=== PATIENT | female | born 1960 | race Caucasian/White ===

== ENCOUNTER → 2019-09-14 15:17 | Outpatient (CLI) | payer OTHER, SELFPAY ==
[2019-09-15 18:08] LABS: COVID19 Sendout Not Detected (Not Detect)
== END ==
PROVIDERS: Visit Provider Physician Assistant
DX: Z11.59 Encounter for screening for other viral diseases (principal)
CPT/HCPCS: 87635

== ENCOUNTER 2019-09-17 06:28 | Day surgery (SDC) | payer OTHER, SELFPAY ==
[2019-09-17] VITALS (8 sets, daily range): BP systolic 101–125; BP diastolic 44–69; PULSE 53–72; RESP 13–19; TEMP 36–36.4; O2SAT 95–99; BMI 30.5
--- NOTE | 2019-09-17 | PATH_ITS ---
[facility] Accession Number: [id number] . 01 Material submitted: . colon - CECAL LIPOMA . 02 Diagnosis: Cecum, Biopsy: Serrated lesion, favor sessile serrated adenoma. Submucosal mature adipose tissue consistent with lipoma. [facility] 09/21/2019 1558 Local . 02 Electronically signed: . Linh Carreon MD, Pathologist NPI- [id number] . 01 Gross description: . Received in formalin, labeled cecal lypoma, are two pieces of alonso, soft tissue measuring 0.8 x 0.6 x 0.4 cm to 0.3 x 0.2 x 0.2 cm. The larger piece of tissue is inked, trisected, and entirely submitted in cassette A1. The smaller fragment of tissue is entirely submitted in cassette A1 as well, for a number of four total pieces. ([id number]) /FRR 09/18/2019 0914 Local . 02 Pathologist provided ICD-10: D12.0 . 02 CPT . 775393 Performed at: 01 [facility] [address], [place], [place] [id number] MD Richie Tejada MD Phone: [phone] Performed at: 02 [facility] [address] [place], [place] [id number] MD Linh Carreon MD Phone: [phone]
--- NOTE | 2019-09-17 07:22 | PM.HP.1 ---
History of Present Illness History of Present Illness Date Patient Seen: 09/17/19 Time Patient Seen: 07:22 Chief complaint: [facility] [place]arrative: This is the 58-year-old woman with history of colonoscopy 11 years ago because of abdominal pains. She says that colonoscopy was normal. She says she has not had 1 since then. She believes her mother had some type of colon cancer but she is not sure what it was. She does not of any other family members with any colorectal disorders or polyps. She denies any melena, hematochezia, unexplained abdominal pain, unexplained weight loss. She denies any major medical issues. She takes medication for anxiety/depression, hypothyroidism, and seasonal allergies. She has obstructive sleep apnea, and she is an active smoker. Allergies: She has nausea from codeine and Vicodin Past surgical history: Breast surgery in 2004, colonoscopy in 2008 Past medical history: Hypothyroid, anxiety/depression, seasonal allergies Social: Tobacco use, 10 cigarettes per day Family history: Mother with some type of colon disorder or colon cancer, patient is unsure. No other family history of colon rectal disorders. Medications: Bupropion, citalopram, levothyroxine, loratadine ROS: Thirteen system review is otherwise negative other than as mentioned below and in HPI. PE: GENERAL: Well groomed and cooperative. Appears stated age. Answers questions promptly and appropriately. Vital signs noted. HENT: Normocephalic, atraumatic. Hearing intact. EYES: Conjunctiva pink, sclera white, no periorbital swelling. CARDIOVASCULAR: Regular rate. No pedal edema. RESPIRATORY: Non-tachypneic, breathing comfortably on room air. GASTROINTESTINAL: Abdomen soft and non-distended GENITALURINARY: No flank tenderness. MUSCULOSKELETAL: Equal tone and mass bilaterally. SKIN: Warm, dry, soft, appropriate color for ethnicity. No other lesions, rashes, or wounds. NEURO: Alert and Oriented X 3. No gross sensory deficits, or cognitive issues. PSYCH: Appropriate affect and mood. Meds Home Medications and Allergies Home Medications Medication Instructions Recorded Confirmed Type bupropion HCl 300 mg PO QAM 09/17/19 09/17/19 History citalopram 20 mg PO DAILY 09/17/19 09/17/19 History levothyroxine [Synthroid] 137 mcg PO DAILY 09/17/19 09/17/19 History loratadine 10 mg PO DAILY 09/17/19 09/17/19 History Allergies Allergy/AdvReac Type Severity Reaction Status Date / Time codeine Allergy Mild nasuea Verified 09/17/19 07:12 hydrocodone [From Vicodin] AdvReac Verified 09/17/19 07:12 Assessment & Plan Assessment and plan (1) Smoker: Status: Acute (2) Family history of colon cancer: Status: Acute Assessment & Plan narrative: Risks and benefits of screening colonoscopy and possible polypectomy were discussed with the patient including risk of bleeding, perforation, need for additional procedures, risks of anesthesia. The patient desires to proceed with the colonoscopy procedure. COVID-19 COVID-19 status: Negative Result date/Date tested (Pos, Neg/Pending): 09/14/19 Time Spent With Patient Time with patient: 15-24 minutes Quality VTE Deep Vein Thrombosis/Pulmonary Embolism Present on Admission: No
--- NOTE | 2019-09-17 07:29 | PM.OP.ENDO ---
Operative Date/Time/Diagnoses Date of procedure: 09/17/19 Time of procedure: 07:29 Pre-op diagnosis: Family history of colon cancer Procedure & Clinicians Study performed: Colonoscopy Hot snare biopsy of cecal mass, suspected lipoma Procedural sedation performed by endoscopist Same procedure as scheduled: Yes Indications: This is a 58-year-old woman who had a colonoscopy 11 years ago which was normal. She has a family history of a possible colon cancer in her mother, the details of which she is unsure. She is here for screening colonoscopy. Surgeon: Bettye Graf Procedure Notes SCOAP/Timeout: Performed Procedure in detail: The patient was brought to the room and placed in left lateral decubitus position with all bony prominences padded. A time-out was performed and then the patient was given procedural sedation starting with [4] mg of Versed and [100] mcg of fentanyl. A total of 6 mg of Versed and 200 micro g of fentanyl was given for the entire procedure. Vitals were monitored throughout the procedure and remained stable. Once adequately sedated, the procedure was begun. A rectal exam was performed revealing [no abnormalities]. The colonoscope was then introduced to the rectum and advanced to the cecum in the usual fashion. []The cecum was identified by the appendiceal orifice, the mucosal tri-fold, and the ileocecal valve. There was a prominence around the appendiceal orifice suspicious for a possible mucinous appendix. The scope was then retracted while rotating side to side and examining each mucosal fold. Just outside the cecum just proximal to the ileocecal valve there was a submucosal prominence consistent with a lipoma. Hot snare was used to resect a portion of this for biopsy, which was collected and sent for pathology. It looked very much like a lipoma. It was very soft and not suspicious for a stromal tumor. [] At the conclusion of the procedure retroflexion was performed and [small grade 1-2 internal hemorrhoids without stigmata of bleeding were seen]. The scope was then withdrawn from the rectum the procedure was concluded. The patient tolerated the procedure well and was transferred to the PACU in stable condition. Scope withdrawal time: 15 Sedation minutes: 25 Findings: other findings (Periappendiceal prominence, suspicious for mucinous appendix. Cecal mass consistent with lipoma.) Specimen(s): other (Cecal mass biopsy) Complications: none Impression: The patient has a prominence around the appendiceal orifice which is suspicious for a mucinous appendix. She should have a CT scan to rule this out. She had a submucosal mass just proximal to the cecum which looks like a lipoma, and was biopsied with hot snare, and looked like lipomatous material within the mass. This was sent for pathology. No other concerning findings. Post-procedure Recommendations: Colonscopy in 10 years (As long as pathology is benign) and Other recommendation (CT scan of the abdomen and pelvis with IV contrast to rule out mucinous appendix) Follow up: weeks (Recommend follow-up in two weeks to discuss CT scan and pathology results) Disposition: PACU
[2019-09-17] MEDS: SODIUM CHLORIDE 0.9% 1,000 ML 200 ML IV (07:31)
[2019-09-17] MEDS: ONDANSETRON 4 MG/2 ML INJ IV (07:40)
[2019-09-17] MEDS: fentaNYL 250 MCG/5 ML INJ IV ×3 (07:46→07:56)
[2019-09-17] MEDS: MIDAZOLAM 5 MG/5 ML VIAL IV ×4 (07:46→07:56)
[2019-09-17 09:01] LABS: Estimated Glomerular Filt Rate > 60.0 mL/min (>60)
== END 2019-09-17 09:42 | disposition home or self-care (01) ==
PROVIDERS: Referring Provider Surgery; Visit Provider Surgery
PROC: 0DJD8ZZ Inspection of Lower Intestinal Tract, Via Natural or Artificial Opening Endoscopic (ICD-10-PCS; CPT 45378; principal; 2019-09-17 07:45)
DX: Z12.11 Encounter for screening for malignant neoplasm of colon (principal); F17.200 Nicotine dependence, unspecified, uncomplicated; K64.0 First degree hemorrhoids; D12.0 Benign neoplasm of cecum
CPT/HCPCS: 45385; 82565; 99152; J2250; J2405; J3010

== ENCOUNTER → 2020-09-28 09:57 | Outpatient (CLI) | payer OTHER, SELFPAY ==
[2020-09-28 12:50] LABS: COVID19 -Nasal RAPID Negative (Negative)
== END ==
PROVIDERS: Visit Provider Specialist
DX: Z20.822 Contact with and (suspected) exposure to COVID-19 (principal)
CPT/HCPCS: 87635; C9803

== ENCOUNTER 2020-09-29 07:30 | Day surgery (SDC) | payer OTHER, SELFPAY ==
[2020-09-29] VITALS (8 sets, daily range): BP systolic 99–126; BP diastolic 47–68; PULSE 56–69; RESP 12–17; TEMP 36.3–36.6; O2SAT 93–96; BMI 28.3
--- NOTE | 2020-09-29 | PATH_ITS ---
[facility] Accession Number: [id number] . 01 Material submitted: . PART A: ileo-cecal valve - ILIOCECAL VALVE PART B: body - ANAL VERGE . 01 Clinical history: . A) LESION; HISTORY OF SESSILE SERRATED ADENOMA . 02 Diagnosis: A. Ileocecal Valve, Biopsy: Colonic mucosa with a few small benign lymphoid aggregates and no other diagnostic abnormality. Negative for dysplasia and malignancy. . B. Anal Verge, Biopsy: Hyperplastic colonic mucosa. Negative for dysplasia and malignancy. [facility] 10/03/2020 1110 Local . 02 Electronically signed: . Linh Carreon MD, Pathologist NPI- [id number] . 01 Gross description: . Part A: ILIOCECAL VALVE: Received in formalin are multiple fragment(s) of alonso, soft tissue measuring 2.5 x 0.8 x 0.3 cm in aggregate submitted entirely in 1 cassette(s) Part B: ANAL VERGE: Received in formalin are 2 fragment(s) of alonso, soft tissue measuring 0.3 x 0.3 x 0.2 cm to 0.2 x 0.2 x 0.2 cm submitted entirely in 1 cassette(s) /ELICEO 09/30/2020 0449 Local . 02 Pathologist provided ICD-10: K63.5 . 02 CPT . 323830, 409945 Performed at: 01 [facility] [address] [facility], [place], [place] [id number] MD Richie Tejada MD Phone: [phone] Performed at: [address] [facility] [address] [place], [place] [id number] MD Linh Carreon MD Phone: [phone]
[2020-09-29] MEDS: LACTATED RINGERS 1,000 ML 42 ML IV (08:27)
--- NOTE | 2020-09-29 09:11 | PM.HP.1 ---
History of Present Illness History of Present Illness Date Patient Seen: 09/29/20 Time Patient Seen: 09:14 Chief complaint: SDC *$63 copay* Narrative: The patient is a woman who had a colonoscopy a year ago. She had a sessile serrated adenoma incidentally found overlying a lipoma. This apparently was not visualized as a polyp at the time of her procedure and therefore it is uncertain if it is been completely removed. She is brought back for colonoscopy to ensure complete removal Patient History Medical History (Updated 09/29/20 @ 09:16 by Bossman Patel MD) Adrenal incidentaloma Family history of colon cancer Hypothyroid Family & Social History Family History (Updated 09/29/20 @ 09:17 by Bossman Patel MD) Mother Cancer Social History: household members spouse Tobacco & Substance use: Tobacco type cigarettes Smoking Status Current every day smoker Smoking packs per day 0.5 alcohol intake frequency holiday/special occasion Substance Use Type does not use Meds Home Medications and Allergies Home Medications Medication Instructions Recorded Confirmed Type bupropion HCl 300 mg 24 hr tablet, 300 mg PO QAM 09/17/19 09/29/20 History extended release citalopram 20 mg tablet 20 mg PO DAILY 09/17/19 09/29/20 History levothyroxine 137 mcg tablet 137 mcg PO DAILY 09/17/19 09/29/20 History (Synthroid) loratadine 10 mg tablet 10 mg PO DAILY 09/17/19 09/29/20 History Allergies Allergy/AdvReac Type Severity Reaction Status Date / Time codeine Allergy Mild nasuea Verified 09/29/20 07:58 hydrocodone [From Vicodin] AdvReac Verified 09/29/20 07:58 Review of Systems Review of Systems Narrative: Patient suffers from hypothyroidism. She has anxiety and depression. No breathing issues at this time. No chest pain. No black or bloody bowel movements. No seizures or blackouts Exam Vital Signs (past 8 hours): - 09/29/20 08:17 Temperature 97.7 F Pulse Rate 62 Respiratory Rate 16 Blood Pressure 120/68 Pulse Oximetry 96 Oxygen Delivery Method Room Air Narrative Exam Narrative: Pleasant cooperative patient no apparent distress. Lungs are clear to auscultation. No rales or rhonchi. Heart regular rate and rhythm no murmur gallop. Abdomen is soft nontender without mass. No obvious hernias. Patient is alert and oriented x3. Assessment & Plan Assessment & Plan narrative: The patient for a screening colonoscopy. I have discussed the procedure with them. Risks of bleeding, perforation which would necessitate major operation, failure to find remove all lesions, the potential tattoo were all discussed. All questions were answered. They wished to proceed.
[2020-09-29] MEDS: ONDANSETRON 4 MG/2 ML INJ IV (09:16)
--- NOTE | 2020-09-29 09:18 | PM.PREOP ---
Pre-operative Note COVID-19 COVID-19 status: Negative Result date/Date tested (Pos, Neg/Pending): 09/28/20 Interval Note History & Physical reviewed/Exam performed by Physician: Yes Changes to H&P: No ASA Class (for procedural sedation): II
[2020-09-29] MEDS: GLUCAGON,HUMAN RECOMBINANT 1 MG/ML VIAL IV (09:30)
--- NOTE | 2020-09-29 09:46 | PM.OP.ENDO ---
Operative Date/Time/Diagnoses Date of procedure: 09/29/20 Time of procedure: 09:46 Pre-op diagnosis: History of sessile serrated adenoma overlying a lipoma at the ileocecal valve region. Post-op diagnosis: same Procedure & Clinicians Study performed: Colonoscopy with cold biopsy Same procedure as scheduled: Yes Indications: Incidental finding of a sessile serrated adenoma that was unexpected. Patient brought back for evaluation. Surgeon: Bossman Patel Procedure Notes SCOAP/Timeout: Performed Procedure in detail: The patient was placed in the left lateral decubitus position and underwent IV sedation directed by the surgeon consisting of fentanyl and Versed. Digital exam was unremarkable except for decreased sphincter tone. The scope was inserted and advanced through the rectum into the sigmoid, descending, transverse, and ascending colon. Occasional diverticulosis was noted in the sigmoid colon. The cecum was reached identified by the ileocecal valve. The previously noted lipoma was quite obvious. I biopsied the entire surface of it. I saw no evidence however of an adenomatous growth. The scope was gradually brought out. One Polyps were found at the anal verge and was biopsied and removed. . The scope was removed and the patient tolerated the procedure well. Scope withdrawal time: 5 minutes Sedation minutes: 24 Findings: diverticulosis, polyp (At the anal verge) and other findings (Lipoma at the ileocecal valve) Specimen(s): other (Biopsies at the ileocecal valve and at the anal verge) Complications: none Post-procedure Recommendations: Colonscopy in 3 years Follow up: as needed Disposition: PACU
[2020-09-29] MEDS: fentaNYL 250 MCG/5 ML INJ IV (09:48)
[2020-09-29] MEDS: MIDAZOLAM 5 MG/5 ML VIAL IV (09:48)
== END 2020-09-29 10:33 | disposition home or self-care (01) ==
PROVIDERS: Referring Provider Specialist; Visit Provider Specialist
PROC: 0DJD8ZZ Inspection of Lower Intestinal Tract, Via Natural or Artificial Opening Endoscopic (ICD-10-PCS; CPT 45378; principal; 2020-09-29 08:30)
DX: K63.5 Polyp of colon (principal); Z80.0 Family history of malignant neoplasm of digestive organs; E03.9 Hypothyroidism, unspecified; F17.210 Nicotine dependence, cigarettes, uncomplicated; K57.30 Diverticulosis of large intestine without perforation or abscess without bleeding
CPT/HCPCS: 45380; 99152; J1610; J2250; J2405; J3010

== ENCOUNTER → 2023-04-07 16:48 | Outpatient (CLI) | payer OTHER, SELFPAY ==
--- NOTE | 2023-04-07 | DI.MRI.S_ITS ---
PROCEDURE: MR CERVICAL SPINE WO CON INDICATIONS: CERVICALGIA TECHNIQUE: Noncontrast sagittal T1 spin echo and T2 fast spin echo, sagittal STIR, foraminal oblique sagittal T2 fast spin echo, and axial gradient echo or T2 fast spin echo through the cervical spine. COMPARISON: None. FINDINGS: Image quality: Excellent. Alignment and Curvature: Trace retrolisthesis of C5 on C6. Trace anterolisthesis of C6 on C7. Bone Marrow: Marrow demonstrates normal overall signal. Spinal Cord: Visualized spinal cord has normal size and signal. No cerebellar tonsillar herniation. Paraspinous Soft Tissues: No paravertebral masses. Prevertebral soft tissues are normal in thickness. C2-C3: Question bilateral facet joint fusion. No canal stenosis or foraminal stenosis. C3-C4: Minimal disc bulge. Bilateral facet hypertrophy, prominent on the left. Bilateral uncovertebral joint hypertrophy. No central canal stenosis. Mild right foraminal narrowing and moderate left foraminal narrowing. C4-C5: Disc bulge. No canal stenosis. Prominent left facet hypertrophy. Bilateral uncovertebral joint hypertrophy, left greater than right. Qylc-om-[id number] left foraminal narrowing. C5-C6: Trace retrolisthesis of C5 on C6. Posterior disc post osteophyte. AP diameter of the central canal is 9.1 mm. Bilateral uncovertebral joint hypertrophy. Bilateral facet hypertrophy. Moderate to severe right foraminal narrowing with a mild degree of right foraminal C6 nerve root impingement. Moderate left foraminal narrowing with flattening deformity on the exiting left C6 nerve root. C6-C7: Trace anterolisthesis of C6 on C7. Diffuse disc bulge. AP diameter of the central canal is 9.1 mm. Bilateral facet hypertrophy. Ufzo-se-orjvnleb bilateral foraminal narrowing. C7-T1: No canal stenosis or foraminal stenosis. IMPRESSION: 1. There is underlying multilevel facet arthropathy, prominent on the left. 2. There is bpyp-lh-rrmrzqyw canal stenosis at C5-C6 and C6-C7. 3. Multilevel foraminal narrowing as described above. Findings include moderate left foraminal narrowing at C3-C4 and moderate to severe right foraminal narrowing plus moderate left foraminal narrowing at C5-C6. Dictated by: Kaleb Keita M.D. on 04/08/2023 at 8:28 Approved by: Kaleb Keita M.D. on 04/08/2023 at 8:46
== END ==
LOC: MRI 16:49
PROVIDERS: Referring Provider Nurse Practitioner Family; Visit Provider Nurse Practitioner Family
DX: M47.812 Spondylosis without myelopathy or radiculopathy, cervical region (principal); M48.02 Spinal stenosis, cervical region; M54.2 Cervicalgia; M79.642 Pain in left hand
CPT/HCPCS: 72141

== ENCOUNTER → 2024-05-08 14:05 | Outpatient (CLI) | payer OTHER, SELFPAY ==
--- NOTE | 2024-05-08 14:08 | DI.CT.S_ITS ---
PROCEDURE: CT LUNG LOW DOSE SCREENING INDICATIONS: LUNG CANCER SCREENING TECHNIQUE: Noncontrast 2.0-2.5 mm thick sections acquired from the pulmonary apices to the posterior costophrenic angles. 7 mm thick axial MIP, and 5 mm coronal and sagittal reformats were then acquired. For radiation dose reduction, the following was used: automated exposure control, adjustment of mA and/or kV according to patient size. COMPARISON: None. FINDINGS: Image quality: Diagnostic. Lower Neck: No enlarged lymph nodes. Thyroid: No thyroid nodules which require sonographic follow up, per consensus guidelines. Axillae: No enlarged lymph nodes. Chest Wall: Unremarkable. Bones: Unremarkable. Lungs and Pleura: No pneumothorax or pleural effusions. No consolidation or suspicious nodules. Heart: Heart size is normal. No pericardial effusion. Thoracic Vessels: The aorta and pulmonary arteries demonstrate normal size. Mediastinum and Catrina: No enlarged lymph nodes. Esophagus: No wall thickening. No hiatal hernia. Upper Abdomen: Visualized upper abdomen solid organs and bowel loops appear normal. IMPRESSION: No suspicious pulmonary nodules. LUNG-RADS 1; continued annual screening, if eligible. Clinically Significant Non-pulmonary Findings: None. Approved by: Lulu Diana M.D.,Ph.D. on 05/10/2024 at 2:31
== END ==
DX: Z12.2 Encounter for screening for malignant neoplasm of respiratory organs (principal); F17.210 Nicotine dependence, cigarettes, uncomplicated
CPT/HCPCS: 71271

== ENCOUNTER 2024-12-30 09:03 | Day surgery (SDC) | payer OTHER, SELFPAY ==
--- NOTE | 2024-12-30 | PATH_ITS ---
[facility] Accession Number: [id number] No. of containers..01 Tissue . 01 Material submitted: . colon - SIGMOID POLYP . 01 Diagnosis: SIGMOID COLON: Hyperplastic polyp. WOOD 01/11/2025 1255 Local . 01 Electronically signed: . Analisa Hamilton DO, Pathologist NPI- [id number] . 01 Gross description: . Received is one formalin-filled container labeled with the patient's name and labeled sigmoid polyp. The specimen consists of one fragment of alonso, soft tissue which measures 0.7 x 0.4 x 0.4 cm. Specimen is totally submitted in cassette A1. ([id number]) /COBY 01/05/20252126 Local . 01 Pathologist provided ICD-10: Z12.11 . 01 CPT . 695509 Specimen Comment: A courtesy copy of this report has been sent to [facility] Performed at: 01 [facility] [address], [place], [place] [id number] MD Richie Tejada MD Phone: [phone]
--- NOTE | 2024-12-30 06:54 | P.HP_ITS ---
History of Present Illness History of Present Illness Date Patient Seen: 12/30/24 Chief complaint: Colonoscopy Narrative: 64yo F presents for screening colonoscopy today. [facility] Medical History (Updated 12/30/24 @ 06:55 by Paulino Coello MD) Hypothyroid Adrenal incidentaloma Family history of colon cancer Family History (Updated 09/29/20 @ 09:17 by Bossman Patel MD) Mother Cancer Social History household members: spouse Meds Home Medications and Allergies Home Medications ?Medication ?Instructions ?Recorded ?Confirmed ?Type bupropion HCl 300 mg 24 hr tablet, 300 mg PO QAM 09/1609/29/20 History extended release citalopram 20 mg tablet 20 mg PO DAILY 09/17/1909/11 History levothyroxine 137 mcg tablet 137 mcg PO DAILY 09/17/19 09/29/20 History (Synthroid) loratadine 10 mg tablet 10 mg PO DAILY 09/17/1909/11 History sodium,potassium,mag sulfates 17.5 See Rx Instructions PO .COMPLEX 12/20/24 Rx gram-3.13 gram-1.6 gram oral soln #354 mL (Suprep Bowel Prep Kit) Allergies Allergy/AdvReac Type Severity Reaction Status Date / Time codeine Allergy Mild nasuea Verified 09/29/20 07:58 hydrocodone (From Vicodin) AdvReac Verified 09/29/20 07:58 Exam Narrative Exam Narrative: Const General: healthy appearing, comfortable and no acute distress Orientation: alert and oriented x3 HENMT Ears: hearing grossly normal bilaterally Eyes Visual Whatley: normal visual whatley by confrontation Conjunctivae: conjunctivae normal Sclera: sclerae normal EOM: EOM intact bilaterally Resp Effort & Inspection: normal respiratory effort and able to speak in complete sentences Cardio Rate: regular rate GI Palpation: soft (NT) Extrem General: no pedal edema and no calf tenderness Assessment & Plan Assessment and plan (1) Family history of colon cancer: Status: Acute (2) Encounter for screening colonoscopy: Status: Acute Plan Plan colonoscopy, possible biopsy. The risks, benefits and options regarding the procedure were explained to the patient in detail. Risk discussion included but not limited to: bleeding, perforation, unable to reach cecum, missed lesion. The patient was encouraged to ask questions and they were answered to their satisfaction. The patient understands and is agreeable to proceed. Time-Based Coding :: [TOTAL MINUTES] spent with patient and on the chart (including review of chart, obtaining history, exam, reviewing outside data, placing orders, documenting exam and treatment plan, and counseling patient) on [DATE]. PROFEE Drawing Tracer Document charge(s): Yes Charge Codes Inpatient/observation care including admit and discharge same day: [id number]
[2024-12-30 09:49] VITALS: BP 150/72; PULSE 63; RESP 16; TEMP 36.4; O2SAT 100
[2024-12-30] MEDS: LACTATED RINGERS 1,000 ML 42 ML IV (09:51)
[2024-12-30 11:04] VITALS: BP 116/57; PULSE 63; RESP 12; TEMP 36.1; O2SAT 100
--- NOTE | 2024-12-30 11:08 | PM.OP.COLON ---
Operative Date/Time/Diagnoses Date of procedure: 12/30/24 Time of procedure: 11:08 Pre-op diagnosis: H/O colon polyp Post-op diagnosis: same Procedure & Clinicians Study performed: Colonoscopy with polypectomy Same procedure(s) as scheduled: Yes Indications: 64yo F h/o colon polyp Surgeon: Paulino Coello Anesthesia Type: MAC +/- Procedure Notes SCOAP/Timeout: Performed Procedure in detail: Colonoscopy Patient placed in left lateral recumbent position. Time out was performed. Procedural sedation was administered by anesthesia. Examination began with a thorough inspection of the perianal area. There was no evidence of fissures, fistulae, external hemorrhoids or cutaneous malignancy. The colonoscope was then placed into the rectum and the lumen was insufflated with carbon dioxide. The scope was carefully advanced forward. Ultimately the cecum was intubated and confirmed by identification of the ileocecal valve, the appendiceal orifice and the confluence of the taenia. The scope was then slowly withdrawn examining the colon thoroughly in all directions. In the rectum, retroflexion of the scope was performed for inspection of the distal rectum and anal canal. ?Significant colonoscopy findings: ?1. Quality of the preparation-good, [place] 2-3, improved with irrigation/suction ?2. Single 3mm polyp at rectosigmoid junction, sessile, removed with cold snare and retrieved for pathology 3. Multiple benign appearing 2mm hyperplastic polyps in rectum Scope withdrawal time: 8 Findings: polyp(s) Specimen(s): other (polyp) Estimated Blood Loss: 5 Complications: none Impression: Colon polyp Post-procedure Recommendations: Colonoscopy in 10 years Plan for aftercare: PACU then home Follow up: as needed Disposition: PACU
[2024-12-30 11:10] VITALS: BP 111/54; PULSE 60; RESP 16; O2SAT 98
[2024-12-30 11:18] VITALS: BP 119/64; PULSE 66; RESP 14; O2SAT 98
== END 2024-12-30 11:40 | disposition home or self-care (01) ==
PROVIDERS: Referring Provider Surgery; Visit Provider Surgery
PROC: 0DJD8ZZ Inspection of Lower Intestinal Tract, Via Natural or Artificial Opening Endoscopic (ICD-10-PCS; CPT 45378; principal; 2024-12-30 10:30)
DX: Z12.11 Encounter for screening for malignant neoplasm of colon (principal); Z86.0100 Personal history of colon polyps, unspecified; Z80.0 Family history of malignant neoplasm of digestive organs; E03.9 Hypothyroidism, unspecified; K63.5 Polyp of colon
CPT/HCPCS: 45385; J2704; J7120